=== PATIENT | female | born 1985 | race American Indian/Alaskan Native ===

== ENCOUNTER 2019-03-17 17:25 | Emergency (ER) | payer SELFPAY ==
--- NOTE | 2019-03-17 18:19 | Event Note ---
ED Screening Note Date of service: 03/17/19 Time: 18:15 ED Screening Note: This is a 34 y.o. F. that presents to the ER with bilateral plantar pain for 1 day. Reports pain is worse with weight bearing. Denies injury. This initial assessment/diagnostic orders/clinical plan/treatment(s) is/are subject to change based on patients health status, clinical progression and re- assessment by fellow clinical providers in the ED. Further treatment and workup at subsequent clinical providers discretion. Patient/guardian urged not to elope from the ED as their condition may be serious if not clinically assessed and managed. Initial orders include: XR of both foot
[2019-03-17 18:23] VITALS: BP 128/77
--- NOTE | 2019-03-17 20:33 | XRay Report ---
Bilateral feet 6 views INDICATION: Bilateral foot pain IMPRESSION: No fracture or subluxation identified within either foot. No in these hepatic changes alphonso ntified at the plantar fascia attachment to the calcaneus. Both calcanei appear intact and grossly un remarkable. Signer Name: Patel Leiva MD Signed: 03/17/2019 8:28 PM Workstation Name: [id number]
[2019-03-17] MEDS ORDERED: IBUPROFEN PO ONE (21:04)
--- NOTE | 2019-03-17 21:08 | Emergency Department Report ---
ED Extremity Problem HPI - General Chief complaint: Extremity Problem,Nontraumatic Stated complaint: RT LEG PAIN Time Seen by Provider: 03/17/19 18:14 Source: patient Mode of arrival: Ambulatory Limitations: No Limitations - History of Present Illness Initial comments: 34-year-old -[place] female presents to the emergency room stating that she has bilateral feet pain that started yesterday. Patient reports that she has pain with walking and bearing weight. Patient denies any trauma no falls. Patient reports she does possibly walk in pain is gotten worse with walking. Patient has taken nothing for pain. Patient has a past medical history of asthma. Patient does not take any medications on a daily basis has no known drug allergies. Patient reports that she has no primary care provider at this time is not employed. MD Complaint: extremity pain Onset/Timin -: days(s) Location: left, right, other (feet) Severity scale (0 -10): 7 Quality: aching Consistency: constant Worsens with: weight bearing, walking Associated Symptoms: denies other symptoms - Related Data Previous Rx's Medication Instructions Recorded Last Taken Type Ibuprofen [Motrin 600 MG tab] 600 mg PO Q8H PRN #21 tablet 03/17/19 Unknown Rx Allergies Allergy/AdvReac Type Severity Reaction Status Date / Time No Known Allergies Allergy Unverified 03/17/19 17:36 ED Review of Systems ROS: Stated complaint: RT LEG PAIN Other details as noted in HPI Comment: All other systems reviewed and negative ED Past Medical Hx - Past Medical History Previous Medical History?: Yes Hx Asthma: Yes - Surgical History Past Surgical History?: No - Social History Smoking Status: Never Smoker Substance Use Type: Alcohol - Medications Home Medications: Home Medications Medication Instructions Recorded Confirmed Last Taken Type Ibuprofen [Motrin 600 MG tab] 600 mg PO Q8H PRN #21 tablet 03/17/19 Unknown Rx ED Physical Exam - General Limitations: No Limitations General appearance: alert, in no apparent distress - Head Head exam: Present: atraumatic, normocephalic - Eye Eye exam: Present: normal appearance - Extremities Exam Extremities exam: Present: normal inspection, full ROM, tenderness (tenderness to the plantar area), other (feet are very dirty nails are uncapped). Absent: pedal edema, joint swelling, calf tenderness - Back Exam Back exam: Present: full ROM - Neurological Exam Neurological exam: Present: alert, oriented X3 - Psychiatric Psychiatric exam: Present: normal affect, normal mood - Skin Skin exam: Present: warm, dry, intact, normal color. Absent: rash ED Course Vital Signs 03/17/19 18:21 Temperature 99.3 F Pulse Rate 81 Respiratory 18 Rate Blood Pressure 128/77 O2 Sat by Pulse 100 Oximetry ED Medical Decision Making - Radiology Data Radiology results: report reviewed Patient: REYMUNDO ROBERTS MR#: [id number] 95 : 1985 Acct:[id number] Age/Sex: 34 / F ADM Date: 03/17/19 Loc: ED Attending Dr: Ordering Physician: MADISON MCLAUGHLIN Date of Service: 03/17/19 Procedure(s): XR foot BILAT 2V Accession Number(s): [id number] cc: MADISON MCLAUGHLIN Fluoro Time In Minutes: Bilateral feet 6 views INDICATION: Bilateral foot pain IMPRESSION: No fracture or subluxation identified within either foot. No in these hepatic changes identified at the plantar fascia attachment to the calcaneus. Both calcanei appear intact and grossly unremarkable. Signer Name: Patel Leiva MD Signed: 03/17/2019 8:28 PM Workstation Name: [id number] Transcribed By: BC Dictated By: Patel Leiva MD Electronically Authenticated By: Patel Leiva MD Signed Date/Time: 03/17/192027 DD/ 26 TD/TT: - Medical Decision Making 34-year-old -[place] female presents to the emergency room stating that she has bilateral feet pain that started yesterday. Patient reports that she has pain with walking and bearing weight. Patient denies any trauma no falls. Patient reports she does possibly walk in pain is gotten worse with walking. Patient has taken nothing for pain. Patient has a past medical history of asthma. Patient does not take any medications on a daily basis has no known drug allergies. Patient reports that she has no primary care provider at this time is not employed. X-rays of both feet shows no acute abnormalities. Patient will be given ibuprofen 600 mg for pain management. Follow up with one of the community providers. Critical care attestation.: If time is entered above; I have spent that time in minutes in the direct care of this critically ill patient, excluding procedure time. ED Disposition Clinical Impression: Pain in both feet Disposition: DC-01 TO HOME OR SELFCARE Is pt being admited?: No Does the pt Need Aspirin: No Condition: Stable Additional Instructions: Pain medication as needed. I recommend soaking her feet in Epsom salts. Follow-up with the community provider I have listed several below for your convenience. Prescriptions: Ibuprofen [Motrin 600 MG tab] 600 mg PO Q8H PRN #21 tablet PRN Reason: Pain , Severe (7-10) Referrals: PRIMARY CARE, [Primary Care Provider] - 3-[address] [facility] [Outside] - 3-5 Days [facility] [Outside] - 3-5 Days
== END 2019-03-17 21:37 | disposition home or self-care (01) ==
LOC: ED 17:25
DX: M79.671 Pain in right foot (principal); M79.672 Pain in left foot; J45.909 Unspecified asthma, uncomplicated